=== PATIENT | female | born 1990 | race African-American/Black ===

== ENCOUNTER 2016-11-25 02:39 | Emergency (ER) | payer SELFPAY ==
[2016-11-25] MEDS ORDERED: Ketorolac Tromethamine 30 MG/ML VIAL ONE (04:02)
[2016-11-25] MEDS ORDERED: diphenhydrAMINE HCl 50 MG/ML 1 ML VIAL ONE (04:02)
[2016-11-25] MEDS ORDERED: Metoclopramide HCl 10 MG/2 ML VIAL ONE (04:02)
--- NOTE | 2016-11-25 09:14 | CT ---
PRELIMINARY REPORT/[facility]/EMERGENCY AFTER HOURS PROCEDURE: EXAM: CT Head Without Intravenous Contrast CLINICAL HISTORY: 26 years old, female; Pain; Headache; Headache not specified; Patient HX: F 26 presents to ed with H A that began yesterday around 1600, pt took 400mg ibuprofen yesterday at 1630 but has not had any re lief. States that "this is the worst GUERRA of her life" and that it started at its full intensity. Stat es that she has weakness. Pt has h/o migraines, especially when she does not wear her sunglasses, st ates she has them "every day". Nkma, no tobacco or alcohol usage. TECHNIQUE: Axial computed tomography images of the head/brain without intravenous contrast. COMPARISON: No relevant prior studies available. FINDINGS: Brain: Unremarkable. No hemorrhage. No significant white matter disease. No edema. Ventricles: Unremarkable. No ventriculomegaly. Bones/joints: Unremarkable. No acute fracture. Soft tissues: Unremarkable. Sinuses: Unremarkable as visualized. No acute sinusitis. Mastoid air cells: Unremarkable as visualized. No mastoid effusion. IMPRESSION: Normal head/brain CT. Thank you for allowing us to participate in the care of your patient. Dictated and Authenticated by: Cristóbal Summers MD 11/25/2016 3:41 AM Central Time ([place] \\T\\ [place]) FINAL REPORT EMERGENT AFTER HOURS CT BRAIN WITHOUT CONTRAST: FINDINGS/IMPRESSION: I agree with the findings and impression given in the preliminary report per [facility] physician. No ev idence of acute intracranial abnormality. POS: [facility]
== END 2016-11-25 05:45 | disposition home or self-care (01) ==
LOC: ERS 02:39
DX: R51 Headache (principal); J45.909 Unspecified asthma, uncomplicated; F41.9 Anxiety disorder, unspecified; F32.9 Major depressive disorder, single episode, unspecified
CPT/HCPCS: 36415; 70450; 84703; 96365; 96375; J1200; J1885; J2765

== ENCOUNTER 2017-07-27 10:28 | Emergency (ER) | payer MEDICAID, SELFPAY ==
[2017-07-27] MEDS ORDERED: Dexamethasone 4 mg/ml Vial ONE (11:01)
[2017-07-27 11:03] LABS: Bilirubin Negative (Negative); Blood, Urine Moderate (Negative); Glucose, Urine (Dipstick) Negative (Negative); Leukocyte Moderate (Negative); Nitrite Negative (Negative); Protein, Urine (Dipstick) Trace mg/dL (Neg-Trace); pH, Urine 7.5 (5.0-9.0)
[2017-07-27 11:10] LABS: Clarity CLEAR (Clear)
[2017-07-27 11:11] LABS: Bacteria/HPF 1+ HPF (None Seen); Hyaline Casts/LPF NONE SEEN LPF (0-3 Hyaline); Pregnancy Test - Urine (BHCG) Negative (Negative); Pregu Control Background? CLEAR/WHITE (CLR/WHITE); Pregu Control Bar Appear? YES (CONTROL BAR); Squamous Epithelial 0-3 HPF (0-3)
--- NOTE | 2017-07-27 12:10 | RAD ---
TWO VIEW CHEST: Indication: Dyspnea. FINDINGS: No consolidation or effusion. No pneumothorax. Cardiac silhouette is at upper limits of normal in siz e. Osseous structures are intact. IMPRESSION: No focal consolidation. POS: [facility]
[2017-07-27] MEDS ORDERED: cefTRIAXone\\ROCEPHIN 1 GM VIAL ONE (13:41)
[2017-07-27] MEDS ORDERED: Lidocaine 1% PF 5 ML VIAL ONE (13:41)
== END 2017-07-27 14:37 | disposition home or self-care (01) ==
LOC: ERS 10:28
DX: J45.901 Unspecified asthma with (acute) exacerbation (principal); N39.0 Urinary tract infection, site not specified; G43.909 Migraine, unspecified, not intractable, without status migrainosus; F41.9 Anxiety disorder, unspecified; F32.9 Major depressive disorder, single episode, unspecified
CPT/HCPCS: 71046; 81003; 81015; 81025; 87086; 94640; 96372; J0696; J1100; J2001; J7620

== ENCOUNTER 2017-08-29 20:30 | Outpatient (CLI) | payer MEDICAID | END 2017-08-29 20:31 | disposition home or self-care (01) | LOC: SLEEPLAB 20:30 | PROVIDERS: ATTEND Family Medicine | DX: G47.33 Obstructive sleep apnea (adult) (pediatric) (principal); R06.83 Snoring | CPT/HCPCS: 95811 ==

== ENCOUNTER 2018-05-02 12:22 | Emergency (ER) | payer OTHER, SELFPAY ==
[2018-05-02 13:12] LABS: #Basophils 0.1 thou/uL (0.0-0.2); #Eosinphils 0.2 thou/uL (0.0-0.7); #Lymphocytes 2.5 thou/uL (1.20-3.40); #Monocytes 0.5 thou/uL (0.11-0.59); #Neutrophils 3.7 thou/uL (1.40-6.50); %Basophils 0.7 % (0.0-1.0); %Eosinophils 3.4 % (0.0-10.0); %Lymphocytes 36.2 % (21.0-51.0); %Monocytes 6.4 % (0.0-10.0); %Neutrophils 53.2 % (42.0-75.0); Mean Corpuscular HGB CONC 32.2 g/dL (32.0-36.0); Mean Corpuscular Hemoglobin 29.3 pg (27.0-31.0); Mean Platelet Volume 6.7 fL (7.4-10.4); Platelet Count 289 thou/uL (130-400); RBC Distribution Width 11.9 % (11.5-14.5); Red Blood Cell (RBC) Count 4.44 mill/uL (4.20-5.40)
[2018-05-02 13:38] LABS: ALT (SGPT) 16 U/L (8-55); AST (SGOT) 15 U/L (5-34); Albumin 4.3 g/dL (3.5-5.0); Alkaline Phosphatase 84 U/L (40-150); Anion Gap 12 mmol/L (10-20); BUN (Urea Nitrogen) 11 mg/dL (7.0-18.7); Bilirubin, Total 0.2 mg/dL (0.2-1.2); Calc. Creatinine Clearance 0 mL/min (70-130); Calcium 9.4 mg/dL (7.8-10.44); Carbon Dioxide 27 mmol/L (22-29); Chloride 105 mmol/L (98-107); Estimated GFR-MDRD Greater than 90; Globulin 3.7 g/dL (2.4-3.5); Glucose 89 mg/dL (70-105); Lipase 6 U/L (8-78); Potassium 3.6 mmol/L (3.5-5.1); Sodium 140 mmol/L (136-145)
[2018-05-02 14:20] LABS: Bilirubin Negative (Negative); Blood, Urine Negative (Negative); Clarity CLOUDY (Clear); Glucose, Urine (Dipstick) Negative (Negative); Leukocyte Moderate (Negative); Nitrite Negative (Negative); Protein, Urine (Dipstick) Negative (Neg-Trace); Specific Gravity, Urine 1.023 (1.002-1.036); pH, Urine 5.5 (5.0-9.0)
[2018-05-02 14:23] LABS: Bacteria/HPF Rare-Few HPF (None Seen); Hyaline Casts/LPF 0-3 HYALINE CAST LPF (0-3 Hyaline); Pathc Cast-AUWi Flag 0.14 (0-2.49)
[2018-05-02 14:25] LABS: Pregnancy Test - Urine (BHCG) Negative (Negative); Pregu Control Background? CLEAR/WHITE (CLR/WHITE); Pregu Control Bar Appear? YES (CONTROL BAR); Specific Gravity 1.023 (1.002-1.036)
[2018-05-02 14:38] LABS: RBC/HPF None Seen HPF (0-3)
[2018-05-02] MEDS ORDERED: Ondansetron ODT 4 MG TAB ONE (14:55)
[2018-05-02] MEDS ORDERED: Famotidine 20 MG TAB ONE (14:55)
[2018-05-02] MEDS ORDERED: Mag-Al 1200 mg/1200 mg/30 ML UDCUP ONE (14:57)
[2018-05-02] MEDS ORDERED: Lidocaine Viscous Sol 2% 15 ml UD Cup ONE (14:57)
== END 2018-05-02 16:05 | disposition home or self-care (01) ==
LOC: ERS 12:22
DX: K21.0 Gastro-esophageal reflux disease with esophagitis (principal); K29.70 Gastritis, unspecified, without bleeding; G43.909 Migraine, unspecified, not intractable, without status migrainosus; J45.909 Unspecified asthma, uncomplicated; F41.0 Panic disorder [episodic paroxysmal anxiety]
CPT/HCPCS: 36415; 80053; 81003; 81015; 81025; 83690; 85025; 99284; Q0162